=== PATIENT | male | born 1960 | race Caucasian/White ===

== ENCOUNTER 2017-02-24 01:48 | Emergency (ER) | payer OTHER ==
[~2017-02-24] VITALS: Ht 172.7 cm; Wt 77.1 kg
[~2017-02-24 01:48] MED LIST: ATI0.5 PO; BACLOFEN20 MG PO; BUS5 PO; BUSPIRONE HCL15 MG PO; ECO81 PO; FOL1 PO; GOOD NEIGHBOR100 M2 PO; HYDROCODONE BIT1 T11 PO; HYDROCODONE BIT1 T47 PO; LIBRIUM25 MG PO; LOP50 PO; LORAZEPAM0.5 MG PO; NORCO1 TA2 PO; OSCD PO; THI100 PO; TYL325 PO; ZES10 PO; ZESTRIL20 MG PO; ZOC20 PO
[2017-02-24 02:42] LABS: BASOPHIL % 0.1 % (0-2); PLATELET COUNT 162 x10^3mcL (130-400)
[2017-02-24 02:43] LABS: RED CELL DISTRIBUTION WIDTH 16.9 % (11.5-14.5)
[2017-02-24 02:55] LABS: CALCIUM 8.7 mg/dL (8.5-10.1); CARBON DIOXIDE 28.3 mmol/L (21-32); CHLORIDE SERUM 96 mmol/L (98-107); CREATININE SERUM 0.8 mg/dL (0.7-1.3); GFR1 > 60 mL/min; GLUCOSE SERUM 132 mg/dL (74-106); POTASSIUM SERUM 3.1 mmol/L (3.5-5.1); SODIUM SERUM 135 mmol/L (136-145)
[2017-02-24 02:59] LABS: ALBUMIN 4.2 g/dL (3.4-5.0); ALKALINE PHOSPHATASE 98 U/L (46-116); ALT/SGPT 104 U/L (16-63); AST/SGOT 125 U/L (15-37); BILIRUBIN TOTAL 1.41 mg/dL (0.20-1.00); LIPASE 272 IU/L (73-393); TOTAL PROTEIN, SERUM 7.7 g/dL (6.4-8.2)
[2017-02-24 05:29] LABS: UA SPECIFIC GRAVITY 1.005 (1.005-1.035); microscopic required? YES
[2017-02-24 05:30] LABS: urine erythrocyte 3+ (NEGATIVE)
[2017-02-24 05:40] LABS: AMPHETAMINE QUAL UR NONE DETECTED (NEG <=1000)
[2017-02-24 09:18] VITALS: BP 125/81
== END 2017-02-24 09:18 | disposition home or self-care (01) ==
LOC: ED 01:48
PROVIDERS: Emergency Medicine
DX: F10.239 Alcohol dependence with withdrawal, unspecified (principal); R07.89 Other chest pain; R74.0 Nonspecific elevation of levels of transaminase and lactic acid dehydrogenase [LDH]; R11.10 Vomiting, unspecified; I10 Essential (primary) hypertension; G89.29 Other chronic pain; M54.9 Dorsalgia, unspecified; M06.9 Rheumatoid arthritis, unspecified
CPT/HCPCS: 80307; J2060; J7030; Q0092; Q9967

== ENCOUNTER 2017-10-12 16:51 | Emergency (ER) | payer OTHER ==
[~2017-10-12] VITALS: Ht 180.3 cm; Wt 75.0 kg
[2017-10-12 22:37] VITALS: BP 149/99
== END 2017-10-12 22:37 | disposition home or self-care (01) ==
LOC: ED 16:51
DX: F10.239 Alcohol dependence with withdrawal, unspecified (principal); F41.9 Anxiety disorder, unspecified; I10 Essential (primary) hypertension
CPT/HCPCS: J2250

== ENCOUNTER 2018-01-20 22:14 | Inpatient (IN) | payer OTHER ==
[~2018-01-20] VITALS: Ht 172.7 cm; Wt 79.9 kg
[2018-01-20 22:22] VITALS: Ht 172.7 cm; Wt 79.9 kg
[2018-01-20 23:09] LABS: PLATELET COUNT 229 x10^3mcL (130-400)
[2018-01-20 23:10] LABS: RED CELL DISTRIBUTION WIDTH 15.1 % (11.5-14.5)
[2018-01-20 23:18] LABS: CALCIUM 7.8 mg/dL (8.5-10.1); CARBON DIOXIDE 24.1 mmol/L (21-32); CHLORIDE SERUM 103 mmol/L (98-107); CREATININE SERUM 0.7 mg/dL (0.7-1.3); GFR1 > 60 mL/min; GLUCOSE SERUM 108 mg/dL (74-106); POTASSIUM SERUM 3.2 mmol/L (3.5-5.1); SODIUM SERUM 142 mmol/L (136-145)
[2018-01-20 23:22] LABS: ALBUMIN 3.6 g/dL (3.4-5.0); ALKALINE PHOSPHATASE 186 U/L (46-116); ALT/SGPT 271 U/L (16-63); AST/SGOT 352 U/L (15-37); BILIRUBIN TOTAL 0.6 mg/dL (0.20-1.00); TOTAL PROTEIN, SERUM 7.1 g/dL (6.4-8.2)
[2018-01-21 00:01] LABS: BAND NEUTROPHIL 3 % (0-10); MONOCYTE 10 % (0-7); SEGMENTED NEUTROPHILS 27 % (37-75)
[2018-01-21 00:03] LABS: PLATELET MORPHOLOGY FEW LARGE PLATELET; rbc morphology (normal/abnorm) NORMAL (NORMAL)
[2018-01-21 01:02] LABS: MAGNESIUM 1.1 mg/dL (1.8-2.4); PHOSPHOROUS 3.1 mg/dL (2.5-4.9)
[2018-01-21 01:03] LABS: CHOLESTEROL/HDL RATIO 5.8
[2018-01-21 01:07] VITALS: BP 159/98
[2018-01-21 01:12] LABS: FREE T4 1.01 ng/dL (0.76-1.46); FREE THYROXINE INDEX 2.4 ug/dL (1.4-4.5)
[2018-01-21 01:22] LABS: T3 TOTAL 1.45 ng/mL
[2018-01-21 04:27] LABS: UA SPECIFIC GRAVITY 1.015 (1.005-1.035); microscopic required? YES; urine erythrocyte TRACE (NEGATIVE)
[2018-01-21 04:55] LABS: AMPHETAMINE QUAL UR NONE DETECTED (NEG <=1000)
[2018-01-21 05:38] VITALS: BP 136/86
[2018-01-21 06:27] LABS: PLATELET COUNT 176 x10^3mcL (130-400)
[2018-01-21 06:29] LABS: RED CELL DISTRIBUTION WIDTH 15.4 % (11.5-14.5)
[2018-01-21 06:48] LABS: CALCIUM 7.4 mg/dL (8.5-10.1); CARBON DIOXIDE 24.6 mmol/L (21-32); CHLORIDE SERUM 106 mmol/L (98-107); CREATININE SERUM 0.6 mg/dL (0.7-1.3); GFR1 > 60 mL/min; GLUCOSE SERUM 115 mg/dL (74-106); SODIUM SERUM 144 mmol/L (136-145)
[2018-01-21 09:37] LABS: BAND NEUTROPHIL 2 % (0-10); BASOPHIL 0 % (0-2); MONOCYTE 16 % (0-7); SEGMENTED NEUTROPHILS 44 % (37-75)
[2018-01-21 09:39] LABS: PLATELET MORPHOLOGY GIANT PLATELET SEEN; rbc morphology (normal/abnorm) ABNORMAL (NORMAL); tear drop cell (dacryocyte) 1+
[2018-01-21 09:55] VITALS: BP 138/92
[2018-01-21 14:09] VITALS: BP 127/82
[2018-01-21 16:54] VITALS: BP 136/88
[2018-01-21 21:17] VITALS: BP 111/78
[2018-01-22 05:41] VITALS: BP 147/87
[2018-01-22 09:17] LABS: PLATELET COUNT 165 x10^3mcL (130-400)
[2018-01-22 09:29] LABS: CALCIUM 7.7 mg/dL (8.5-10.1); CARBON DIOXIDE 23.1 mmol/L (21-32); CHLORIDE SERUM 104 mmol/L (98-107); CREATININE SERUM 0.8 mg/dL (0.7-1.3); GFR1 > 60 mL/min; GLUCOSE SERUM 153 mg/dL (74-106); RED CELL DISTRIBUTION WIDTH 14.7 % (11.5-14.5); SODIUM SERUM 137 mmol/L (136-145)
[2018-01-22 09:54] LABS: ALT/SGPT 217 U/L (16-63); AST/SGOT 254 U/L (15-37)
[2018-01-22 10:07] VITALS: BP 126/78
[2018-01-22 10:51] LABS: BAND NEUTROPHIL 8 % (0-10); BASOPHIL 0 % (0-2); MONOCYTE 12 % (0-7); SEGMENTED NEUTROPHILS 42 % (37-75)
[2018-01-22 10:52] LABS: PLATELET MORPHOLOGY GIANT PLATELET SEEN; rbc morphology (normal/abnorm) ABNORMAL (NORMAL); tear drop cell (dacryocyte) 1+
[2018-01-22 16:43] VITALS: BP 130/89
[2018-01-22 22:07] VITALS: BP 133/89
[2018-01-23 06:09] VITALS: BP 140/86
[2018-01-23 06:11] LABS: BASOPHIL % 1.1 % (0-2); PLATELET COUNT 174 x10^3mcL (130-400)
[2018-01-23 06:17] LABS: CALCIUM 8.5 mg/dL (8.5-10.1); CARBON DIOXIDE 24.5 mmol/L (21-32); CHLORIDE SERUM 105 mmol/L (98-107); CREATININE SERUM 0.6 mg/dL (0.7-1.3); GFR1 > 60 mL/min; GLUCOSE SERUM 91 mg/dL (74-106); POTASSIUM SERUM 4.2 mmol/L (3.5-5.1); SODIUM SERUM 142 mmol/L (136-145)
[2018-01-23 06:28] LABS: RED CELL DISTRIBUTION WIDTH 14.8 % (11.5-14.5)
[2018-01-23 09:08] VITALS: BP 100/73
[2018-01-23 13:09] VITALS: BP 103/79
[2018-01-23] MEDS ORDERED: BAY PO (14:33)
[2018-01-23] MEDS ORDERED: PROZ20 PO (14:34)
[2018-01-23] MEDS ORDERED: ATI1 PO ×2 (14:35→16:08)
[2018-01-23] MEDS ORDERED: FOL1 PO (14:36)
[2018-01-23] MEDS ORDERED: LOP50 PO (15:40)
[2018-01-23 16:09] VITALS: BP 103/79
[2018-01-23 17:40] VITALS: BP 118/82
== END 2018-01-23 18:37 | disposition home or self-care (01) | DRG 896 ==
LOC: ED 22:14 → DU 23:33
PROVIDERS: Emergency Medicine; Family Medicine Sports Medicine
DX: F10.239 Alcohol dependence with withdrawal, unspecified (principal); G92 Toxic encephalopathy; I50.43 Acute on chronic combined systolic (congestive) and diastolic (congestive) heart failure; F33.9 Major depressive disorder, recurrent, unspecified; Y90.9 Presence of alcohol in blood, level not specified; I11.0 Hypertensive heart disease with heart failure; F41.1 Generalized anxiety disorder; I16.0 Hypertensive urgency; E87.6 Hypokalemia; E78.5 Hyperlipidemia, unspecified; E83.42 Hypomagnesemia; E83.51 Hypocalcemia
CPT/HCPCS: 83880; 84439; G0480; J2060; J2550; J3475; J7030; Q0092

== ENCOUNTER 2018-07-29 04:00 | Inpatient (IN) | payer OTHER ==
[~2018-07-29] VITALS: Ht 172.7 cm; Wt 78.6 kg
[~2018-07-29 04:00] MED LIST changes: +ATI1 PO; +BAY PO; +PROZ20 PO
[2018-07-29 04:06] VITALS: Ht 172.7 cm; Wt 78.6 kg
[2018-07-29 04:58] LABS: BASOPHIL % 0.5 % (0-2); PLATELET COUNT 220 x10^3mcL (130-400)
[2018-07-29 05:02] LABS: RED CELL DISTRIBUTION WIDTH 16.6 % (11.5-14.5)
[2018-07-29 05:04] LABS: CALCIUM 8.9 mg/dL (8.5-10.1); CARBON DIOXIDE 22.6 mmol/L (21-32); CHLORIDE SERUM 107 mmol/L (98-107); CREATININE SERUM 0.7 mg/dL (0.7-1.3); GFR1 > 60 mL/min; GLUCOSE SERUM 113 mg/dL (74-106); POTASSIUM SERUM 3.9 mmol/L (3.5-5.1); SODIUM SERUM 141 mmol/L (136-145)
[2018-07-29 05:08] LABS: ALKALINE PHOSPHATASE 115 U/L (46-116); ALT/SGPT 47 U/L (16-63); AST/SGOT 64 U/L (15-37); BILIRUBIN TOTAL 0.47 mg/dL (0.20-1.00); LIPASE 127 IU/L (73-393); TOTAL PROTEIN, SERUM 6.4 g/dL (6.4-8.2)
[2018-07-29] MEDS ORDERED: ATORVASTATIN CA80 M1 PO (08:25)
[2018-07-29] MEDS ORDERED: CLOPIDOGREL75 M1 PO (08:25)
[2018-07-29] MEDS ORDERED: METHOTREXATE2.5 M2 PO (08:26)
[2018-07-29] MEDS ORDERED: METOPROLOL TART25 M1 PO (08:27)
[2018-07-29 09:09] VITALS: BP 151/91
[2018-07-29 09:33] VITALS: BP 151/91
[2018-07-29 13:56] VITALS: BP 119/83
[2018-07-29 16:54] VITALS: BP 118/84
[2018-07-29 21:03] VITALS: BP 121/76
[2018-07-30 06:22] LABS: CALCIUM 8.7 mg/dL (8.5-10.1); CARBON DIOXIDE 26.9 mmol/L (21-32); CHLORIDE SERUM 101 mmol/L (98-107); CREATININE SERUM 0.7 mg/dL (0.7-1.3); GFR1 > 60 mL/min; GLUCOSE SERUM 110 mg/dL (74-106); SODIUM SERUM 139 mmol/L (136-145)
[2018-07-30 06:28] LABS: BASOPHIL % 0.7 % (0-2); PLATELET COUNT 228 x10^3mcL (130-400)
[2018-07-30 06:29] VITALS: BP 100/76
[2018-07-30 06:36] LABS: RED CELL DISTRIBUTION WIDTH 16.6 % (11.5-14.5)
[2018-07-30 08:37] VITALS: BP 128/68
[2018-07-30 12:55] VITALS: BP 112/65
[2018-07-30 13:07] VITALS: BP 112/65
[2018-07-30 16:42] VITALS: BP 108/62
[2018-07-30] MEDS ORDERED: LASIX20 MG PO ×2 (17:20→17:21)
[2018-07-30] MEDS ORDERED: COR3 PO (17:37)
[2018-07-30] MEDS ORDERED: ZESTRIL5 MG PO (17:37)
[2018-07-30] MEDS ORDERED: K-TAB10 MEQ PO (17:40)
== END 2018-07-30 18:21 | disposition home or self-care (01) | DRG 314 ==
LOC: ED 04:00 → DU 06:37
PROVIDERS: Emergency Medicine; Internal Medicine
DX: I42.6 Alcoholic cardiomyopathy (principal); I50.23 Acute on chronic systolic (congestive) heart failure; I11.0 Hypertensive heart disease with heart failure; F10.10 Alcohol abuse, uncomplicated; E78.5 Hyperlipidemia, unspecified; M06.9 Rheumatoid arthritis, unspecified; G89.29 Other chronic pain; M54.9 Dorsalgia, unspecified; Z68.27 Body mass index [BMI] 27.0-27.9, adult; Y90.0 Blood alcohol level of less than 20 mg/100 ml; Z95.5 Presence of coronary angioplasty implant and graft; Z85.828 Personal history of other malignant neoplasm of skin; I25.10 Atherosclerotic heart disease of native coronary artery without angina pectoris
CPT/HCPCS: 83880; 85378; J1940; Q0092

== ENCOUNTER 2018-12-22 04:50 | Emergency (ER) | payer OTHER ==
[~2018-12-22] VITALS: Ht 172.7 cm; Wt 78.9 kg
[~2018-12-22 04:50] MED LIST changes: +ATORVASTATIN CA80 M1 PO; +CLOPIDOGREL75 M1 PO; +COR3 PO; +K-TAB10 MEQ PO; +LASIX20 MG PO; +METHOTREXATE2.5 M2 PO; +METOPROLOL TART25 M1 PO; +ZESTRIL5 MG PO
[2018-12-22 04:51] VITALS: Ht 172.7 cm; Wt 78.9 kg
[2018-12-22 05:30] LABS: BASOPHIL % 0.8 % (0-2); PLATELET COUNT 278 x10^3mcL (130-400)
[2018-12-22 05:31] LABS: RED CELL DISTRIBUTION WIDTH 16.2 % (11.5-14.5)
[2018-12-22 05:42] LABS: CALCIUM 8.6 mg/dL (8.5-10.1); CARBON DIOXIDE 26.5 mmol/L (21-32); CHLORIDE SERUM 100 mmol/L (98-107); CREATININE SERUM 0.9 mg/dL (0.7-1.3); GFR1 > 60 mL/min; GLUCOSE SERUM 124 mg/dL (74-106); POTASSIUM SERUM 3.5 mmol/L (3.5-5.1); SODIUM SERUM 139 mmol/L (136-145)
[2018-12-22 05:46] LABS: ALKALINE PHOSPHATASE 112 U/L (46-116); ALT/SGPT 32 U/L (16-63); AST/SGOT 32 U/L (15-37); BILIRUBIN TOTAL 0.44 mg/dL (0.20-1.00); TOTAL PROTEIN, SERUM 7.5 g/dL (6.4-8.2)
[2018-12-22 08:12] LABS: UA SPECIFIC GRAVITY 1.025 (1.005-1.035); microscopic required? YES; urine erythrocyte 1+ (NEGATIVE)
[2018-12-22 08:15] LABS: AMPHETAMINE QUAL UR NONE DETECTED (See below)
[2018-12-22 10:06] VITALS: BP 153/77
== END 2018-12-22 10:22 | disposition home or self-care (01) ==
LOC: ED 04:50
PROVIDERS: Emergency Medicine
DX: R10.31 Right lower quadrant pain (principal); R11.2 Nausea with vomiting, unspecified; M54.9 Dorsalgia, unspecified; I10 Essential (primary) hypertension
CPT/HCPCS: G0480; J1885; J2405; J7030

== ENCOUNTER 2019-01-17 11:08 | Inpatient (IN) | payer OTHER ==
[~2019-01-17] VITALS: Ht 172.7 cm; Wt 77.1 kg
[2019-01-17 11:56] LABS: BASOPHIL % 0.9 % (0-2); PLATELET COUNT 262 x10^3mcL (130-400)
[2019-01-17 11:58] LABS: RED CELL DISTRIBUTION WIDTH 16.2 % (11.5-14.5)
[2019-01-17 11:59] LABS: CALCIUM 8.6 mg/dL (8.5-10.1); CARBON DIOXIDE 27.7 mmol/L (21-32); CREATININE SERUM 1.6 mg/dL (0.7-1.3); POTASSIUM SERUM 3.2 mmol/L (3.5-5.1)
[2019-01-17 12:05] LABS: ALBUMIN 3.4 g/dL (3.4-5.0); BILIRUBIN TOTAL 1.12 mg/dL (0.20-1.00); TOTAL PROTEIN, SERUM 6.9 g/dL (6.4-8.2)
[2019-01-17 13:00] LABS: BASOPHIL % 0.1 % (0-2); PLATELET COUNT 220 x10^3mcL (130-400)
[2019-01-17 13:45] LABS: RED CELL DISTRIBUTION WIDTH 15.7 % (11.5-14.5)
[2019-01-17 17:45] LABS: CHOLESTEROL/HDL RATIO 2.6; MAGNESIUM 1.6 mg/dL (1.8-2.4)
[2019-01-17 19:43] VITALS: BP 129/57
[2019-01-17 22:05] VITALS: BP 134/80
[2019-01-18 05:57] VITALS: BP 135/83
[2019-01-18 09:27] VITALS: BP 143/85
== END 2019-01-18 11:40 | disposition left against medical advice (07) | DRG 313 ==
LOC: ED 11:08 → DU 17:14
PROVIDERS: Emergency Medicine; ADMIT Internal Medicine Pulmonary Disease
DX: R07.89 Other chest pain (principal); F10.239 Alcohol dependence with withdrawal, unspecified; N17.9 Acute kidney failure, unspecified; I11.9 Hypertensive heart disease without heart failure; I25.10 Atherosclerotic heart disease of native coronary artery without angina pectoris; E86.0 Dehydration; Z95.5 Presence of coronary angioplasty implant and graft
CPT/HCPCS: 83880; G0480; J2060; J2270; J2405; J3490; J7030; Q0092

== ENCOUNTER 2019-02-09 14:36 | Emergency (ER) | payer OTHER ==
[~2019-02-09] VITALS: Ht 172.7 cm; Wt 70.3 kg
[2019-02-09 14:44] VITALS: Ht 172.7 cm; Wt 70.3 kg
[2019-02-09 15:09] VITALS: BP 111/87
== END 2019-02-09 15:09 | disposition left against medical advice (07) ==
LOC: ED 14:36
DX: Z53.21 Procedure and treatment not carried out due to patient leaving prior to being seen by health care provider (principal)

== ENCOUNTER 2019-04-28 18:50 | Emergency (ER) | payer OTHER ==
[~2019-04-28] VITALS: Ht 172.7 cm; Wt 70.8 kg
[2019-04-28 18:57] VITALS: Ht 172.7 cm; Wt 70.8 kg
[2019-04-28 22:58] VITALS: BP 121/82
== END 2019-04-28 22:58 | disposition home or self-care (01) ==
LOC: ED 18:50
DX: S01.81XA Laceration without foreign body of other part of head, initial encounter (principal); S01.512A Laceration without foreign body of oral cavity, initial encounter; S09.8XXA Other specified injuries of head, initial encounter; S29.8XXA Other specified injuries of thorax, initial encounter; I10 Essential (primary) hypertension; M06.9 Rheumatoid arthritis, unspecified; Z95.818 Presence of other cardiac implants and grafts; Z98.890 Other specified postprocedural states; Z85.828 Personal history of other malignant neoplasm of skin; X58.XXXA Exposure to other specified factors, initial encounter; Y93.89 Activity, other specified; Y92.89 Other specified places as the place of occurrence of the external cause; Y99.8 Other external cause status
CPT/HCPCS: 90715; G0480; J2001